=== PATIENT | male | born 1960 | race Caucasian/White ===

== ENCOUNTER 2019-09-18 05:51 | Day surgery (SDC) | payer OTHER ==
[~2019-09-18 05:51] MED LIST: Buffered Lidocaine 1% SYRIN* 1 ML/SYRINGE INTRADERM ONE
[2019-09-18] MEDS ORDERED: Lactated Ringers 1000 ML Bag* 1,000 ML IV SCH (06:00)
[2019-09-18] MEDS ORDERED: Propofol* 10 MG/ML 20 ML BTL ONE (06:21)
[2019-09-18] MEDS ORDERED: Ondansetron INJ* 2 MG/ML VIAL ONE (06:21)
[2019-09-18] MEDS ORDERED: Dexamethasone IV* 4 MG/ML 1 ML (4 MG) ONE (06:21)
[2019-09-18] MEDS ORDERED: Glycopyrrolate IV* 0.2 MG/ML 1 ML VIAL ONE (06:21)
[2019-09-18] MEDS ORDERED: Propofol* 500 MG/50 ML BTL ONE (06:44)
[2019-09-18] MEDS ORDERED: HYDROmorphone INJ1* 1 MG/ML SYRINGE ONE (06:46)
[2019-09-18] MEDS ORDERED: Naloxone* 0.4 MG/ML 1 ML VIAL IV PRN (07:49)
[2019-09-18 08:49] VITALS: BP 151/97
--- NOTE | 2019-09-18 09:03 | PRO ---
CC: Martha Traylor NP * DATE OF PROCEDURE: 09/18/19 - [facility] PROCEDURE: Colonoscopy with snare polypectomy, jumbo biopsy polypectomy, clip placement. REFERRING PROVIDER: Martha Traylor NP. INDICATION: Colon cancer screening. This the patient's first exam. No GI symptoms. No family history of colon polyps or colon cancer. The patient has chronic narcotic use. He was uneasy with the idea of potentially not being able to be fully sedated with moderate sedation. Elected for anesthesia for propofol. MEDICATIONS GIVEN: By Anesthesia. DESCRIPTION OF PROCEDURE: Full disclosure of risks was reviewed with the patient as detailed on the consent form. The patient was placed in the left lateral decubitus position and monitored with continuous pulse oximetry, capnography, interval blood pressure monitoring, and direct observation. Anorectal exam was performed. Adult colonoscope was inserted into the rectum and slowly advanced forward to the level of the terminal ileum. Complete views of the cecum were obtained, including medial wall between the IC valve and appendiceal orifice. Quality of prep was good. Careful inspection was made as the colonoscope was withdrawn. Retroflexion was performed in the rectum. Findings and interventions are described below. FINDINGS: Anorectal exam was unremarkable. Scope was inserted into the rectum and slowly advanced forward to the level of the cecum. Once in the cecum, the terminal ileum was intubated x10 cm. The ileal mucosa was normal in appearance. The scope was then withdrawn back into the cecum and then slowly throughout the length of the colon. There was moderate severity diverticulosis in the sigmoid colon. In the rectum, at approximately 15 cm, there was a 1.5 cm pedunculated polyp. This polyp was removed using electrosurgery (cautery). One clip was deployed at polypectomy site to decrease risk of delayed bleeding. In the rectum, there was a tiny 3 mm polyp, which was removed with jumbo biopsy forceps. Retroflexion in the rectum revealed medium-sized internal hemorrhoids. Scope was then withdrawn from the patient. The patient tolerated the procedure well and was recovered in the GI recovery area. IMPRESSION: 1. Complete colonoscopy to terminal ileum. 2. Moderate severity sigmoid diverticulosis. 3. Large pedunculated rectal polyp, removed as above. 4. Tiny rectal polyp. 5. Internal hemorrhoids, medium to large. FOLLOWUP: 1. Await pathology. 2. Tentatively plan for repeat colonoscopy in 3 years. 3. Recommend conservative management for hemorrhoids. The patient is not symptomatic at this time. 4. Recommend high-fiber diet given the presence of diverticulosis. Thank you very much for this referral. [id number]/[facility] #: [id number] MALA
== END 2019-09-18 09:04 | disposition home or self-care (01) ==
LOC: OR 05:51
PROVIDERS: ATTEND Internal Medicine Gastroenterology
DX: Z12.11 Encounter for screening for malignant neoplasm of colon (principal); D12.8 Benign neoplasm of rectum; K62.1 Rectal polyp; K57.30 Diverticulosis of large intestine without perforation or abscess without bleeding; K64.8 Other hemorrhoids; E03.9 Hypothyroidism, unspecified; E78.5 Hyperlipidemia, unspecified; Z87.891 Personal history of nicotine dependence; E66.9 Obesity, unspecified
CPT/HCPCS: 88305; J1100; J1170; J2405; J2704